=== PATIENT | female | born 1995 | race Caucasian/White ===

== ENCOUNTER → 2017-05-28 | Outpatient (CLI) | payer BC ==
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
== END ==
LOC: CT 11:59
PROVIDERS: ATTEND Family Medicine
DX: J34.2 Deviated nasal septum (principal); G44.309 Post-traumatic headache, unspecified, not intractable; S09.90XA Unspecified injury of head, initial encounter
CPT/HCPCS: 70450; 70486